=== PATIENT | female | born 1955 | race Caucasian/White ===

== ENCOUNTER 2018-01-22 17:49 | Emergency (ER) | payer BC ==
--- NOTE | 2018-01-22 18:37 | RAD ---
HISTORY: Right wrist injury COMPARISONS: None VIEWS: 3, Frontal, lateral, and oblique views of the right wrist FINDINGS: BONE DENSITY: There is diffuse osteopenia. BONES: There is a dorsally angulated fracture of the distal radial metaphysis with articular extension. 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 ALIGNMENT: There is no dislocation. SOFT TISSUES: Unremarkable. OTHER FINDINGS: None. IMPRESSION: DORSALLY ANGULATED FRACTURE OF THE DISTAL RADIAL METAPHYSIS.
[2018-01-22] MEDS ORDERED: Lidocaine 1%* 5 ML VIAL INJ ONE (18:41)
[2018-01-22] MEDS ORDERED: Lidocaine 1%* 5 ML VIAL ONE (18:42)
[2018-01-22 19:44] VITALS: BP 127/52
--- NOTE | 2018-01-22 19:52 | RAD ---
HISTORY: Post reduction COMPARISONS: January 22, 2018 at 6:11 PM VIEWS: 3, Frontal, lateral, and oblique views of the right wrist performed in a cast sutures fine bone detail FINDINGS: BONE DENSITY: Normal. BONES: There is been interval reduction of the angulation of the distal radial metaphysis fracture. JOINTS: There is no arthropathy. ALIGNMENT: There is no dislocation. SOFT TISSUES: Unremarkable. OTHER FINDINGS: None. IMPRESSION: INTERVAL REDUCTION OF THE ANGULATION OF THE DISTAL RADIAL METAPHYSIS FRACTURE.
--- NOTE | 2018-01-22 21:12 | ED ---
Upper Extremity Pain - HPI Summary HPI Summary: Patient is an otherwise healthy 62-year-old female who presents to the ED after sustaining a FOOSH injury. There is an obvious deformity to the dorsum of the right wrist. She denies any numbness or tingling. Pulses intact +2 bilaterally. There is no ecchymosis or erythema to the area. She denies any other injuries including hitting her head or loss of consciousness. She denies any blood thinners. She has never injured the arm before. Denies any hand or elbow pain. Unable to flex or extend at the wrist joint. Unable to pronate or supinate. Right hand dominant. - History of Current Complaint Chief Complaint: EDExtremityUpper Stated Complaint: RT WRIST INJURY Time Seen by Provider: 01/22/18 17:54 Hx Obtained From: Patient Mechanism Of Injury: Other - FOOSH Onset/Duration: Started Hours Ago Timing: Constant Severity Initially: Moderate Severity Currently: Moderate Character: Aching Aggravating Factor(s): Lifting, Flexion, Extension, Internal/External Rotation, Twisting Alleviating Factor(s): Rest, Ice Associated Signs & Symptoms: Positive: Swelling, Other - Obvious deformity Related History: Dominant Hand Right - Risk Factors Non-Orthopedic Risk Factor: Negative DVT Risk Factors: Negative Septic Arthritis Risk Factor: Negative Compartment Syndrome Risk Factors: Pain PMH/Surg Hx/FS Hx/Imm Hx Previously Healthy: Yes Musculoskeletal History: Denies: Hx Osteoporosis - Cancer History Hx Chemotherapy: No Hx Radiation Therapy: No - Surgical History Surgery Procedure, Year, and Place: TONSILECTOMY; - Immunization History Hx Pertussis Vaccination: No Immunizations Up to Date: Unable to Obtain/Confirm Infectious Disease History: No Infectious Disease History: Denies: Traveled Outside the [place] in Last 30 Days - Social History Occupation: Employed Full-time Lives: With Family Alcohol Use: Occasionally Hx Substance Use: No Substance Use Type: Reports: None Hx Tobacco Use: No Smoking Status (MU): Never Smoked Tobacco Review of Systems Constitutional: Negative Negative: Fever, Chills, Fatigue, Skin Diaphoresis Eyes: Negative Cardiovascular: Negative Positive: no symptoms reported, see HPI Positive: Arthralgia, Myalgia Neurological: Negative Psychological: Normal All Other Systems Reviewed And Are Negative: Yes Physical Exam Triage Information Reviewed: Yes Vital Signs On Initial Exam: Initial Vitals Temp Pulse Resp BP Pulse Ox 97.7 F 53 18 135/50 99 01/22/18 17:57 01/22/18 17:57 01/22/18 17:57 01/22/18 17:57 01/22/18 17:57 Vital Signs Reviewed: Yes Appearance: Positive: Well-Appearing, Well-Nourished Skin: Positive: Warm, Skin Color Reflects Adequate Perfusion Head/Face: Positive: Temporal Artery Tenderness Eyes: Positive: EOMI, BRADY, Conjunctiva Clear Neck: Positive: Supple, No Lymphadenopathy Respiratory/Lung Sounds: Positive: Clear to Auscultation, Breath Sounds Present Cardiovascular: Positive: RRR, Pulses are Symmetrical in both Upper and Lower Extremities Musculoskeletal: Positive: Pain @ - Right dorsum of the wrist Neurological: Positive: Speech Normal Psychiatric: Positive: Normal Diagnostics - Vital Signs Vital Signs Temp Pulse Resp BP Pulse Ox 01/22/18 19:42 97.6 F 54 18 127/52 100 01/22/18 17:57 97.7 F 53 18 135/50 99 - Laboratory Lab Statement: Any lab studies that have been ordered have been reviewed, and results considered in the medical decision making process. Course/Dx - Course Course Of Treatment: During the course of treatment, the patient is evaluated for right wrist injury. X-ray obtained which shows a dorsally angulated fracture of the distal radial metaphysis. Dr. Guzman consult that and is willing to see the patient. 5 mill lidocaine into the hematoma for a block with effect. Dr. Guzman successfully reduced the angulation as shown by the following x-ray postreduction. Impression: Interval reduction of the angulation of the distal radial metaphysis fracture. She is immediately placed in a right distal short arm sugar tong plaster. Sling given. Pain medications given. She is referred to Dr. Barragan or Dr. Victoria for next week appointment. - Diagnoses Provider Diagnoses: Distal radius fracture, right Discharge - Discharge Plan Condition: Stable Disposition: HOME Prescriptions: Hydrocodone/Acetamin 10/325(NF [Forbes 10/325 (NF)] 1 tab PO Q6H #12 tab MDD 4 Patient Education Materials: Wrist Fracture in Adults (ED) Referrals: Matt Benton MD [Primary Care Provider] - Raymundo Victoria MD [Medical Doctor] - Additional Instructions: Ibuprofen 600mg 3 times daily For pain not well controlled with ibuprofen, he may take the Forbes as prescribed to U Keep the splint on dry and intact Please follow-up with Dr. Victoria or Dr. Barragan next week
--- NOTE | 2018-01-23 02:50 | CONS ---
CONSULTATION REPORT: DATE OF CONSULT: 01/22/18 HISTORY OF PRESENT ILLNESS: Sushila is a 62-year-old healthy woman who fell on a snow covered curve at 4:30 p.m. today landing on her right outstretched hand. She is coming to the emergency room with a displaced distal radius fracture and I have evaluated her for that. It is a closed injury. She d enies any numbness or tingling in the hand. 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 PAST SURGICAL HISTORY: Only previous surgery is a tonsillectomy and a small skin excision for melano ma in 2001. MEDICATIONS: She is on chlorthalidone for her hypertension. No other medications noted. ALLERGIES: She has no allergies. REVIEW OF SYSTEMS: Negative for any recent febrile illness, headache, chest pain, shortness of breat h, abdominal distress, urination issues, neurological issues, depression or anxiety. PHYSICAL EXAMINATION: On examination, Sushila is here with her . She is a thin, healthy magy rt woman. The right wrist has a dorsal displacement clinically, but the skin is intact. Swelling is minimal. She has intact sensation in the medial, ulnar, and radial distribution and a warm hand. T he AP and lateral view of the wrist shows intraarticular displaced dorsal distal radius fracture. With her consent and under sterile conditions, I gave her 2% lidocaine into the hematoma of the right distal radius and performed a closed reduction. She has been in her sugar tong and x-rays are pendi ng. The patient is instructed to go home and elevate the wrist. Call the office on Wednesday f or followup with our hand team. [id number]/[facility] #: [id number]
== END 2018-01-22 19:42 | disposition home or self-care (01) ==
LOC: ED 17:49
DX: S52.501A Unspecified fracture of the lower end of right radius, initial encounter for closed fracture (principal); W22.8XXA Striking against or struck by other objects, initial encounter; Y92.9 Unspecified place or not applicable
CPT/HCPCS: 99282

== ENCOUNTER 2018-02-01 09:39 | Day surgery (SDC) | payer BC ==
--- NOTE | 2018-01-31 09:04 | HP ---
PREOPERATIVE HISTORY AND PHYSICAL: DATE OF ADMISSION/SURGERY: 02/01/18 - [facility] DATE OF OFFICE VISIT/ENCOUNTER: 01/27/18 ATTENDING SURGEON: Erica Barragan MD.* (DICTATED BY TAMMIE SOLIMAN) PROCEDURE: Right wrist open reduction internal fixation. CHIEF COMPLAINT: Right wrist fracture. HISTORY OF PRESENT ILLNESS: This is a 62-year-old female, who suffered injury to her right wrist on 01/22/2018 when she tripped on the edge of the road and fell on to an outstretched right hand. She was seen by Dr. Guzman in the emergency room and had a significantly displaced fracture of the distal radius manually reduced by him. She was placed in a sugar tong splint and referred to Dr. Barragan for further evaluation and treatment considerations. Postreduction x- rays still show some apex volar angulation and an intraarticular fragment of the radial styloid. The patient denies any other injury and does not have any associated numbness or tingling. After examination by Dr. Barragan and review of the x-ray she has consented to proceed with surgical intervention in the form of a right wrist open reduction internal fixation. PAST MEDICAL HISTORY: Hypertension. PAST SURGICAL HISTORY: 1. Tonsillectomy. 2. Three skin excision melanoma from her leg in 2001. 3. Lipoma excision. CURRENT MEDICATIONS: 1. Aspirin 81 mg daily. 2. Calcium 1200/1000 mg/unit daily. 3. Chlorthalidone 25 mg half tablet daily. ALLERGIES: No known drug allergies. FAMILY MEDICAL HISTORY: Heart disease, hypertension and cancer. SOCIAL HISTORY: The patient is employed as a clinical psychologist. She was a smoker in the past, quit at age 22. She denies illicit drug use. She does drink alcohol on a regular occasion. REVIEW OF SYSTEMS: General: Negative for fevers, chills, or night sweats. No known anesthesia problems. HEENT: Negative for headache, lightheadedness, or syncopal episodes. Integumentary: Negative for abrasions, lesions, or open wounds. Cardiothoracic: Negative for hypertension, chest pain, palpitations, and edema. Pulmonary: Negative for shortness of breath with exertion, chronic cough, COPD. GI: Negative for nausea, vomiting, diarrhea, constipation, and GERD. : Negative for nocturia, urinary frequency, urgency, history of UTIs, and kidney problems. Musculoskeletal: Positive for current complaint. Negative for chronic or intermittent back pain. Neurological: Negative for paresthesias, numbness, history of seizure, stroke, or epilepsy. Endocrine: Negative for diabetes and thyroid issues. Hematologic: Negative for easy bruising, anemia, excessive bleeding, or history of DVT. Infectious Disease: Negative for history of MRSA, hepatitis C, HIV. PHYSICAL EXAMINATION GENERAL: Well-developed, well-nourished, 62-year-old female in no acute distress. VITAL SIGNS: Height 5 feet 5 inches, weight 135 pounds, pulse rate 71, blood pressure 127/85. HEENT: Normocephalic, atraumatic. Pupils are equal, round, and reactive to light and accommodation. Extraocular movements are intact. NECK: Supple. No palpable lymph nodes. Throat is clear. PULMONARY: Lungs are clear to auscultation bilaterally. No wheezes, rales, or rhonchi. CARDIOVASCULAR: Regular rate and rhythm, S1 and S2. No murmurs, rubs, or gallops. No edema. ABDOMEN: Positive bowel sounds, soft, nontender. NEUROLOGIC: Alert and oriented x3. Cranial nerves II through XII are intact, sensation is intact to light touch. MUSCULOSKELETAL: On exam of her right upper extremity, she has mild swelling in her fingers and some light ecchymosis present, but she has good motion of the fingers. Her forearm is enclosed in a sugar tong splint. She has good motion at the elbow in flexion and extension. Neurovascular function is intact. IMAGING STUDIES: X-rays, AP, lateral, and oblique, of the right wrist postreduction shows some apex volar angulation of the fracture fragments. IMPRESSION: Distal radius fracture, right wrist. PLAN: The patient is scheduled to undergo a right wrist open reduction internal fixation with Dr. Barragan on 02/01/18. She will return to the office 10 days postop for followup and suture removal. She currently has Percocet at home as prescribed by the emergency room and she will be using that for postoperative pain management. TAMMIE SOLIMAN [id number]/[facility] #: [id number] JAMES
[~2018-02-01 09:39] MED LIST: Buffered Lidocaine 0.9% SYRIN* 5 ML/SYR SYRINGE INTRADERM ONE; DiMENhydriNATE IV* 50 MG/ML VIAL IV PUSH PRN; Famotidine IV* 10 MG/ML 2 ML (20 mg) ONE; Famotidine TAB* 20 MG PO ONE; Morphine INJ* 2 MG/ML 1 ML CARPUJECT IV PRN; Naloxone* 0.4 MG/ML 1 ML VIAL IV PRN; PROCHLORPERAZINE INJ 5 MG/ML 2 ML VIAL IV PRN; Scopolamine 1.5 mg* PATCH TRANSDERM PRN; fentaNYL* 50 MCG/ML 2 ML VIAL (100 MCG VIAL) IV PRN; oxyCODONE/Acetamin 5/325 MG* TAB PO PRN
[2018-02-01] MEDS ORDERED: ROPIVACAINE 5 MG/ML 30 ML BTL (0.5%) ONE (09:40)
[2018-02-01] MEDS ORDERED: ceFAZolin 2 GM (*##) 2 GM/100 ML BAG USE CEFA2SOL IVPB ONE (09:56)
[2018-02-01] MEDS ORDERED: fentaNYL* 50 MCG/ML 2 ML VIAL (100 MCG VIAL) ONE (10:33)
[2018-02-01] MEDS ORDERED: Midazolam* 1 MG/ML 5 ML VIAL (5 MG) ONE (10:33)
[2018-02-01] MEDS ORDERED: Lidocaine 2% PF * 5 ML VIAL ONE (11:46)
[2018-02-01] MEDS ORDERED: Ondansetron INJ* 2 MG/ML VIAL ONE (11:46)
[2018-02-01] MEDS ORDERED: Dexamethasone IV* 4 MG/ML 1 ML (4 MG) ONE (11:46)
[2018-02-01] MEDS ORDERED: Flumazenil* 0.1 MG/ML 5 ML MDV ONE (11:46)
[2018-02-01] MEDS ORDERED: Ketorolac INJ* 30 MG/ML 1 ML VIAL ONE (11:46)
[2018-02-01] MEDS ORDERED: Propofol* 10 MG/ML 20 ML BTL IV PUSH ONE (11:46)
[2018-02-01 12:22] VITALS: BP 123/67
--- NOTE | 2018-02-02 06:26 | OP ---
CC: Dr. Barragan OPERATIVE NOTE: DATE OF OPERATION: 02/01/18 DATE OF : 55 SURGEON: Erica Barragan MD SEALING MACHINE OPERATOR: TAMMIE Magaña ANESTHESIA: Block. PRE-OP DIAGNOSIS: Right distal radius fracture. POST-OP DIAGNOSIS: Right distal radius fracture. OPERATIVE PROCEDURE: Open reduction internal fixation of the right distal radius. ESTIMATED BLOOD LOSS: Zero. TOURNIQUET TIME: About 30 minutes. INDICATION FOR PROCEDURE: Rei is a 62-year-old female who fell on to her outstretched right cleaning nd and suffered a fracture of her distal radius. Close reduction did not give adequate alignment of the fracture fragment, so she presents now for an open reduction internal fixation of right distal ra dius. DESCRIPTION OF PROCEDURE: The patient was brought to the operating room, was given a block anestheti c in the preop area. The skin of her right upper extremity was prepped and draped in the usual steri le fashion. The hand and forearm were exsanguinated and the tourniquet, which was on the upper arm, was elevated to 250 mmHg. A longitudinal incision was made overlying the FCR tendon. We dissected s harply through the FCR tendon sheath, superficial and deep. The FPL muscle and tendon were then retr acted and then the pronator quadratus was incised and subperiosteally dissected off of the distal rad ius. The fracture fragments were reduced and position checked on the C-arm and found to be satisfact ory. I secured a 2.4 variable angle Synthes distal radius plate with a proximal screw in the slotted hole and then 4 distal screws. The position of these screws and the fracture fragments were checked on the C-arm in the AP and lateral views and found to be anatomic. The remaining 2 proximal screws were placed and then the wound was irrigated. The pronator quadratus was repaired over the plate wit h 2-0 Vicryl. The FCR tendon sheath was repaired with 2-0 Vicryl and the skin edges reapproximated wi th 4-0 nylon suture. The wound was dressed with Xeroform, 4x4, Webril, and a volar splint in slight flexion. The patient tolerated the procedure well and was brought to the recovery room in good condi tion. [id number]/[facility] #: [id number]
--- NOTE | 2018-02-02 12:58 | RAD ---
INDICATION: Traumatic fracture right wrist operative reduction and internal fixation. COMPARISON: Comparison is made with a prior x-ray study of the right wrist from January 22, 2018. TECHNIQUE: 43 seconds of intermittent fluoroscopic guidance were provided and 2 spot films of the right wrist were obtained in the operating room. FINDINGS: The films demonstrate placement of a surgical metallic plate present along the volar aspect of the distal radius spanning the fracture fragments transfixed with multiple surgical screws. IMPRESSION: INTRAOPERATIVE CONTROL FILMS. CPT II Codes: 6045F
[2018-02-04] MEDS ORDERED: Scopolamine PATCH Remove* 1 NOTE MISC PATCH OFF ONE (06:05)
== END 2018-02-01 12:37 | disposition home or self-care (01) ==
LOC: OREAST 09:39
PROVIDERS: ATTEND Orthopaedic Surgery
DX: S52.571A Other intraarticular fracture of lower end of right radius, initial encounter for closed fracture (principal); I10 Essential (primary) hypertension; Z87.891 Personal history of nicotine dependence; Z79.82 Long term (current) use of aspirin; W01.0XXA Fall on same level from slipping, tripping and stumbling without subsequent striking against object, initial encounter
CPT/HCPCS: 76001; C1713; C1776; J1100; J1885; J2250; J2405; J2704; J2795; J3010